=== PATIENT | female | born 1980 | race Caucasian/White ===

== ENCOUNTER 2019-07-15 08:15 | Day surgery (SDC) | payer OTHER, MEDICAID, SELFPAY ==
[2019-07-10 07:21] VITALS: BMI 38.7
[2019-07-15] VITALS (16 sets, daily range): BP systolic 81–128; BP diastolic 44–72; PULSE 68–99; RESP 11–18; TEMP 36.4–37.2; O2SAT 93–100; BMI 38.3
--- NOTE | 2019-07-15 | PATH_ITS ---
[facility] Accession Number: [id number] . 01 Material submitted: . uterus - UTERUS (NOT INCLUDING CERVIX) AND BILATERAL FALLOPIAN TUBES . 02 Diagnosis: Uterus and Bilateral Fallopian Tubes, Supracervical Hysterectomy and Bilateral Salpingectomy (Multiple Uterine Pieces Weigh 71 grams): Disordered proliferative endometrium with a polyp (1.6 cm in greatest dimension); negative for glandular hyperplasia, cytologic atypia or malignancy. Myometrium with no significant histomorphologic abnormality. Uterine serosa with no significant histomorphologic abnormality. Fallopian tube #1 with no significant histomorphologic abnormality; negative for atypia or malignancy. Fallopian tube #2 with multiple benign paratubal cysts (1-7 mm in greatest dimension); negative for atypia or malignancy. [facility] 07/19/2019 0747 Local . 02 Electronically signed: . Coretta Tomas MD, Pathologist NPI- [id number] . 01 Gross description: . Received in formalin, labeled uterus (not including cervix) / bilateral fallopian tubes, is an upper uterine body in multiple pieces (71 g, 8.5 x 6.5 x 4.5 cm in aggregate) and two detached fimbriated fallopian tubes (tube #1: length-4.3 cm, diameter-0.3 cm; tube #2: length-4.6 cm, diameter-0.3 cm). The cervix and ovaries are absent. The specimen cannot be oriented as to anterior and posterior. The endometrium (average thickness-0.1 cm) is hills, smooth, and flat. The myometrium (thickness-2.7 cm) is hills-white and unremarkable. A possible hills rubbery polyp is identified (1.6 x 1.0 x 0.1 cm). The serosa is pale marie-hills, smooth, and shiny. The fallopian tubes have marie-purple, smooth, shiny serosa and hills unremarkable lumens. Fallopian tube #2 contains multiple paratubal cysts (0.1 cm - 0.7 cm) containing clear, colorless fluid. Section Code: (A1-A4) uterine parenchyma, possible polyp is entirely submitted in A3; (A5) fallopian tube #1, route service representative serial sections; (A6) fimbria #1, bivalve, entirely submitted; (A7) fallopian tube #2, route service representative serial sections; (A8) fimbria #2, bivalve, entirely submitted (JM:[id number]) /[facility] 07/17/2019 1219 Local . 02 Pathologist provided ICD-10: N92.0, N94.6, N84.0 . 02 CPT . 167706 Performed at: 01 [facility] [address] [id number] MD Abner Vo MD Phone: [phone] Performed at: 02 [facility] [address] [place], [place] [id number] MD Martita Harding MD Phone: [phone]
--- NOTE | 2019-07-15 09:30 | PM.PREOP ---
Pre-operative Note Interval Note History & Physical reviewed/Exam performed by Physician: Yes Changes to H&P: No
[2019-07-15] MEDS: CEFAZOLIN 2 GM/100 ML FROZ.PIGGY IV (10:12)
[2019-07-15] MEDS: BUPIVACAINE 0.5% W/ EPI (PF) 10 ML VIAL 30 ML INJ (10:52)
[2019-07-15] MEDS: ROPIVACAINE 2% PF 2 MG/ML 20ML AMP 20 ML INJ (10:52)
--- NOTE | 2019-07-15 10:59 | SUR.OPER ---
Lithotomy on padded OR bed. [place] [address] Pad Positioner under torso. Head on pillow, arms padded and tucked at sides. Legs secured in padded yellow fins stirrups.
[2019-07-15] MEDS: LACTATED RINGERS 1,000 ML 42 ML IV (11:51)
--- NOTE | 2019-07-15 12:42 | PM.OP.1 ---
Operative Date/Time/Diagnoses Date of procedure: 07/15/19 Time of procedure: 12:43 Pre-op diagnosis: Menorrhagia and stress urinary incontinence Post-op diagnosis: same Procedure & Clinicians Procedure: Laparoscopic supracervical hysterectomy with bilateral salpingectomy and TVT retropubic suburethral sling Same procedure as scheduled: Yes Indications: Menorrhagia with stress urinary incontinence Surgeon: Xiomara Jacobs Field Health Officer: Miya Mars Click Yes if Unassisted: No Anesthesia Type: General Operative Notes Findings: Normal tubes, ovaries and uterus. Normal external genitalia, vagina with hypermobile urethra, cervix. Urine jets seen from the ureters bilaterally at the end of cystoscopy Closure Type: primary Specimen(s): other (Uterus above the level of the cervix) Applied: catheter and implant(s) (TVT exact suburethral sling) Estimated Blood Loss (mL): 100 Blood products transfused: none Procedure in detail: Patient is brought to the operating room where she underwent general anesthesia and placed in [facility] stirrups. She was prepped and draped in the usual sterile fashion. A check list was reviewed with the staff in the room prior to beginning of the case. Patient had pulsatile stockings in place and functional. 2 g of Ancef were in prior to beginning of the case. A Stanley catheter was placed. A single-tooth tenaculum was placed on the anterior lip of the cervix and the cervix dilated to a #6 Hegar dilator. The uterine manipulator was placed through the cervix into the uterus with the balloon inflated with 3 mL of air. The area of the umbilical incision and the 5 mm right and left lower quadrant incisions were injected with Marcaine. An incision was made with scalpel. The verries needle was placed into the abdomen and confirmed in the appropriate place with withdrawal on a syringe and then free flow of fluid down through the needle. The abdomen was insufflated with CO2. The needle was removed and a 5 mm trocar placed without difficulty. There did not appear to be any damage is placement of the trocar. The right and left lower quadrant incisions were made with the scalpel and the trochars placed without damage to internal structures. The PK forceps were used to cauterize along the mesosalpinx followed by the round ligaments on both sides. Sequential bites were taken down the broad ligaments. The uterine arteries were cauterized. An incision was made above the level bladder pushing the bladder away from the cervix. The DRISS loop was placed around the uterus and the uterus was amputated above the level of the bladder. Bleeding was controlled with the PK forceps. The PK forceps were used to cauterize in the endocervical canal. A supracervical incision was made and an 12 mm port placed. A 12 mm Endo Catch bag was placed in the abdomen. The uterus and tubes were placed in the bag and brought up through the suprapubic port site. The Angel Luis O was placed. The uterus was hand morselized. The abdomen was reinsufflated and adequate hemostasis was noted. The trochars were removed and the CO2 allowed escape from the abdomen. The fascia layer of the suprapubic site was repaired with 0 Polysorb suture. Skin was closed with 4-0 Monocryl suture at the suprapubic site and the other 3 sites. Next the procedure was switched to vaginal. 10 mL of half percent Marcaine with epinephrine were diluted with 20 mL of saline 10 cc was injected around the mid urethra. An incision was made over the mid urethra with a scalpel. The incision was extended laterally. The suprapubic exit sites were marked with a marking pen. The needles attached to the sling were placed from the bottom up and left in place. The catheter was removed and saline placed in the bladder and cystoscopy was performed. A 70?? scope followed by a 0?? scope were used to look at the bladder and the urethra was no damage apparent with placement of the needles. Both ureters were seen to be functional. The graft was brought up loosely under the mid urethra. With sharp pressure against the bladder there was some leakage of urine. The plastic sheath was removed. The graft was cut under the skin of the suprapubic sites. Skin was closed with Steri-Strips. The vaginal incision was closed with 2-0 vicryl suture. Patient went to recovery room in good condition. Counts of instruments and sponges were correct. Complications: none Post-operative Condition: stable Disposition: observation Plan for aftercare: Monitor overnight with bladder trial in a.m.. Home after bladder trial
--- NOTE | 2019-07-15 13:12 | SUR.PHASEI ---
Patient A/O. Denies pain/nausea. Tolerating po. Drsg CDI. Scant amount of drainage to gregorio-pad.
[2019-07-15] MEDS: LACTATED RINGERS 1,000 ML 100 ML IV (14:29)
--- NOTE | 2019-07-15 15:57 | PC.NURSE ---
Addendum entered by Dio Kaplan R.N. 07/15/19 16:00: update: Gregorio pad checked during changed of shift report, and patient had increased bloody drainage on pad. Patient cleansed with water and elizabet pad and gregorio pad replaced. Evening shift RN will continue to monitor. Stanley remains in place and intact. Patient denies pain. Pleasant and talkative. Original Note: Post op at 1330, up to room 218, oriented to room and call light. VSS. Denies pain. Denies n/v. 6 lap sites covered with drsing with scant bloody drainage noted on gregorio pad. Stanley in place and draining clear yellow urine. IV fluids started as ordered, and call light placed within reach.
[2019-07-15] MEDS: OXYCODONE/ACETAMINOPHEN 5/325 TABLET 2 TAB PO ×2 (17:05→21:03)
--- NOTE | 2019-07-15 18:39 | PC.NURSE ---
Addendum entered by Sydnee Campbell R.N. 07/15/19 22:27: Pt had relatively uneventful evening, IVF infusing as per orders. Dsg on lower section changed due to saturation. Med at 2100 for discomfort w/good relief. Stable post op course. Call light w/in reach, bed alarm on for pt safety. Continue w/plan of care. Original Note: Pt resting at intervals. SpO2 98% RA IVF of LR infusing @ 100cc/hr via pump into the RAC w/o incidence. 4 lap site dsg CDI, lower gauze dsg w/drainage. Med @ 1710 for discomfort w/good relief. Stanley cath patent clear, yellow urine. SCD in place, Call light w/in reach, bed alarm on for pt safety.
[2019-07-15] MEDS: DOCUSATE 250 MG CAPSULE PO (21:03)
[2019-07-16] MEDS: OXYCODONE/ACETAMINOPHEN 5/325 TABLET 2 TAB PO ×3 (01:13→09:32)
[2019-07-16 04:40] VITALS: BP 114/57; PULSE 60; RESP 18; TEMP 36.8; O2SAT 98
[2019-07-16 05:57] LABS: Add Manual Diff / Slide Review NO; Basophils Absolute Auto 100 /uL (0-100); Basophils Percent Auto 0.4 % (0-2); Eosinophils Absolute Auto 0 /uL (0-450); Hematocrit 37.3 % (36-46); Hemoglobin 12.8 g/dL (12.0-16.0); Lymphocytes Absolute Auto 1400 /uL (1100-4500); Lymphocytes Percent Auto 9.7 % (25-40); Mean Corpuscular HGB Conc 34.2 % (30-36); Mean Corpuscular Hemoglobin 29.9 PG (26-34); Mean Corpuscular Volume 87.3 fL (80-100); Monocytes Absolute Auto 700 /uL (0-900); Monocytes Percent Auto 5.1 % (3-14); Neutrophils Absolute Auto 12300 /uL (1500-7000); Neutrophils Percent Auto 84.8 % (50-75); Platelet Count 234 X10^3/uL (150-400); Red Blood Cell Count 4.27 X10^6/uL (4.0-5.2); Red Cell Distribution Width 12.7 % (11.6-14.8); White Blood Cell Count 14.5 X10^3/uL (4.5-11.0)
--- NOTE | 2019-07-16 06:55 | PC.NURSE ---
Small amount of drainage on gregorio pad that was changed. Stanley removed at 0535 with no issues. Minimal pain reported and given 2 tabs percocet. Walks well to commode. Bandages to abdomen have scant dried blood
[2019-07-16 08:51] VITALS: BP 124/61; PULSE 79; RESP 16; TEMP 36.1; O2SAT 99
--- NOTE | 2019-07-16 09:12 | PM.DS.1 ---
History of Present Illness History of Present Illness Date Patient Seen: 07/16/19 Time Patient Seen: 09:13 Chief complaint: [id number] LSCH/TVT EXACT SLING *OPB* Narrative: Status post laparoscopic supracervical hysterectomy with TVT exact retropubic suburethral sling Discharge Providers Provider Discharge Date: 07/16/19 Primary care physician: Pino Carbajal MD Consults: 07/15/19 08:50 Consult to Respiratory Therapy Evaluate & Treat Comment: Physician Instructions: Evaluate and treat Discharge provider: Xiomara Jacobs MD Summary Hospital Course Discharge Diagnosis: Menorrhagia with stress urinary incontinence Hospital Course: Patient underwent a laparoscopic supracervical hysterectomy with bilateral salpingectomies and suburethral sling on 07/15/2019. Patient did well postoperatively. She passed her bladder trial. She is urinating and ambulating well. Pain is under control. Status at Discharge Cognitive/behavioral status at discharge: oriented Functional status at discharge: independent ambulation Overall status at discharge: patient is progressing back to baseline Exam Vital Signs (past 8 hours): - 07/16/19 04:40 07/16/19 08:51 Temperature 98.2 F 96.9 F L Pulse Rate 60 79 Respiratory Rate 18 16 Blood Pressure 114/57 L 124/61 Pulse Oximetry 98 99 Oxygen Delivery Method Room Air Oxygen Flow Rate 0 Narrative Exam Narrative: Patient's abdomen is soft, appropriately tender. Her dressings are clean, dry, intact. Extremities without edema and nontender. Objective Labs Result Diagrams: 07/16/19 05:30 Labs: Laboratory Results - last 24 hr 07/16/19 05:30 WBC 14.5 H RBC 4.27 Hgb 12.8 Hct 37.3 MCV 87.3 MCH 29.9 MCHC 34.2 RDW 12.7 Plt Count 234 Neut % (Auto) 84.8 H Lymph % (Auto) 9.7 L [place] % (Auto) 5.1 Eos % (Auto) 0.0 L Baso % (Auto) 0.4 Neut # (Auto) 64987 H Lymph # (Auto) 1400 [place] # (Auto) 700 Eos # (Auto) 0 Baso # (Auto) 100 Discharge Plan Discharge Plan Patient Disposition: Home Discharge Med Rec/Prescriptions Prescriptions: Continued venlafaxine [Effexor XR] 75 MG capsule,extended release 24hr 75 mg PO QDAY Qty: 0 RF: 0 lamotrigine [Lamictal] 25 mg tablet 200 mg PO QDAY Qty: 0 RF: 0 fluconazole [Diflucan] 150 mg tablet 150 mg PO ONCE Qty: 1 RF: 3 oxycodone-acetaminophen [Percocet] 5-325 mg tablet 2 tab PO Q4-6H PRN (Reason: pain) Qty: 30 RF: 0 ibuprofen 200 mg Tablet 800 mg PO Q8H PRN (Reason: pain) RF: 0 Follow up/Referrals: Pino Carbajal MD [Primary Care Provider] - Xiomara Jacobs MD [Physician] - As previously scheduled Discharge Orders: Discharge (Order); Ordered 07/16/19 Ordered By: Xiomara Jacobs Provider Discharge Instructions Activity: Nothing in vagina and do not lift over 20 lb for 6 weeks Skin/Wound/Dressing Care Report to your healthcare provider any signs of infection, such as:: chills, fever, increased pain and unusual redness Dressing: May remove Band-Aids today. May get Steri-Strips wet just pat dry. May remove in 1 week. Visit Report/Discharge Packet Instructions: DI for Hysterectomy, DI for Laparoscopy Discharge Data Primary Care Provider: Pino Carbajal Attending Provider: Xiomara Jacobs Quality VTE Deep Vein Thrombosis/Pulmonary Embolism Present on Admission: No
[2019-07-16] MEDS: DOCUSATE 250 MG CAPSULE PO (09:31)
[2019-07-16] MEDS: lamoTRIgine 100 MG TABLET 200 MG PO (09:32)
[2019-07-16] MEDS: VENLAFAXINE ER 75 MG CAP PO (09:33)
--- NOTE | 2019-07-16 10:11 | PC.NURSE ---
Assess- Patient is awake and states that her pain is 6/10...at rest a 3/10 but when she moves her pain to lower abdomen goes up. Patient has 6 lap incision sites that are cdi. Bandaides are present on the upper three dressings. Taking two percocet for discomfort and just given at 0930. Patient has no blood on her gregorio pad at this time, just a small amount of dried blood around her labia. Up ad sukhjinder. Voided over 400cc in bathroom after fletcher taken out at 0500. She was bladder scanned and her post void residual was 15cc. Called Dr. Jacobs and she states that patient is discharged and able to go home. Patient has all of her pain medication at home and it was given pre-opt.
== END 2019-07-16 11:00 | disposition home or self-care (01) ==
LOC: OR 08:19 → AC 08:19
PROVIDERS: PCP Student in an Organized Health Care Education/Training Program; Referring Provider Specialist; Visit Provider Specialist
PROC: 0UT94ZL Resection of Uterus, Supracervical, Percutaneous Endoscopic Approach (ICD-10-PCS; CPT 58541; principal; 2019-07-15 09:45)
PROC: 0TSD0ZZ Reposition Urethra, Open Approach (ICD-10-PCS; CPT 58541; 2019-07-15 09:45)
DX: N84.0 Polyp of corpus uteri (principal); N39.3 Stress incontinence (female) (male)
CPT/HCPCS: 58541; 57288; 36415; 85025; C1771; J0690; J1100; J1885; J2250; J2405; J2704; J2795; J3010

== ENCOUNTER → 2019-12-02 12:34 | Outpatient (CLI) | payer OTHER, MEDICAID, SELFPAY ==
[2019-07-15 13:56] VITALS: BMI 38.3
--- NOTE | 2019-12-02 12:35 | DI.CT.S_ITS ---
PROCEDURE: CT ABDOMEN PELVIS WO CON INDICATIONS: Abdominal pain TECHNIQUE: Noncontrast 5 mm thick sections acquired from the diaphragms to the symphysis. 5 mm thick coronal and sagittal reformats were then performed. For radiation dose reduction, the following was used: automated exposure control, adjustment of mA and/or kV according to patient size. COMPARISON: [facility], US, PELVIC COMPLETE, 01/01/2016, 16:21. FINDINGS: Image quality: Excellent. Lung bases: Lung bases are clear. Heart size is normal. Urinary system: Both kidneys are normal in size. No kidney stones. No hydronephrosis or perinephric fat stranding. Both ureters appear non-dilated throughout their expected courses. Bladder is contracted; no calcified bladder stones. Other solid organs: Liver is normal in size. Gallbladder is normal. There is a 1.3 cm low density nodule in the pancreatic tail. Pancreas is normal in contours. Spleen is normal in size. No adrenal nodules. Peritoneum and bowel: Appendix is not seen. There are no secondary signs for acute appendicitis. Unenhanced bowel loops demonstrate normal wall thickness and caliber. No free fluid or air. Nodes and vessels: No retroperitoneal or mesenteric adenopathy by size criteria. Aorta and inferior vena cava are normal in caliber. Abdominal wall: No ventral hernias. Pelvis: Uterus is normal. Left ovary is grossly normal. There is a 3.0 x 3.2 cm complex complex cystic mass in the right ovary. No free pelvic fluid. No inguinal hernias or adenopathy. Bones: No suspicious bony lesions. No vertebral body compression fractures. IMPRESSION: 1. No renal stone hydronephrosis. 2. A 1.3 cm low density nodule in the pancreatic tail (series 2 image 24). Recommend CT or MRI using pancreatic protocol. 3. There is a 3.0 x 3.2 cm complex cyst in the right ovary. A pelvic ultrasound is recommended for followup evaluation. Dictated by: Wade Cho M.D. on 12/02/2019 at 15:04 Approved by: Wade Cho M.D. on 12/02/2019 at 18:41
== END ==
PROVIDERS: PCP Student in an Organized Health Care Education/Training Program; Referring Provider Student in an Organized Health Care Education/Training Program; Visit Provider Student in an Organized Health Care Education/Training Program
DX: R10.31 Right lower quadrant pain (principal); K86.9 Disease of pancreas, unspecified; N83.201 Unspecified ovarian cyst, right side; Z90.711 Acquired absence of uterus with remaining cervical stump
CPT/HCPCS: 74176

== ENCOUNTER → 2019-12-17 09:40 | Outpatient (CLI) | payer OTHER, MEDICAID, SELFPAY ==
[2019-07-15 13:56] VITALS: BMI 38.3
--- NOTE | 2019-12-17 09:41 | DI.US.S_ITS ---
PROCEDURE: US PELVIC COMPLETE INDICATIONS: OVARIAN LESION ON CT TECHNIQUE: Real-time scanning was performed of the pelvic organs, with image documentation. Additional endovaginal scanning was necessary due to incomplete visualization of the adnexal and endometrial structures by transabdominal scanning. COMPARISON: [facility], CT, CT ABDOMEN PELVIS WO CON, 12/02/2019, 12:32. [facility], CT, CT ABDOMEN W CON, 12/17/2019, 10:31. FINDINGS: Transabdominal scanning: Limited scanning through the kidneys shows no hydronephrosis. No pathologic free abdominal or pelvic fluid. Endovaginal scanning: Uterus: Prior hysterectomy. Ovaries: Right ovary measures 4.7 x 3.2 x 4.4 cm and the left ovary measures 3.6 x 2.2 x 2.4 cm. Multiple simple cysts involve the right ovary, largest measuring 2.9 x 2.5 x 2.5 cm. IMPRESSION: Multiple simple right ovarian cysts, largest measuring up to 2.9 cm. Dictated by: Peng Dawn [facility] Interpreted: Joan Dewey MD on 12/17/2019 at 11:26 Approved by: Joan Dewey M.D. on 12/17/2019 at 12:20
--- NOTE | 2019-12-17 10:16 | DI.CT.S_ITS ---
PROCEDURE: CT ABDOMEN W CON INDICATIONS: Re-eval pancreatic nodule seen on noncontrast TECHNIQUE: After the administration of intravenous contrast, 5 mm thick images acquired from the diaphragm to the iliac crests in the pancreatic parenchymal phase and delayed venous phase. 5 mm thick coronal and sagittal reformats were acquired. For radiation dose reduction, the following was used: automated exposure control, adjustment of mA and/or kV according to patient size. COMPARISON: , CT, CT ABDOMEN PELVIS [facility], 12/02/2019, 12:32. FINDINGS: Image quality: Excellent. Lung bases: Lung bases are clear. Heart size is normal. Pancreas: The area in question seen on the previous noncontrast CT in the region of the pancreatic tail has an enhancement pattern which is identical to the remaining pancreatic parenchyma. No suspicious low-density or hypervascular pancreatic mass. Findings are consistent with normal variant bulbous appearance of the pancreatic tail. Solid organs: Liver is normal in size and enhancement. Gallbladder is unremarkable. Biliary system is non dilated. Spleen is normal in size and enhancement. Incidental sub cm left adrenal nodule. Kidneys are unremarkable. The enhance normally without focal masses or hydronephrosis. Peritoneum and bowel: Unenhanced bowel loops are normal in caliber and wall thickness. No free fluid or air. Nodes and vessels: No retroperitoneal or mesenteric adenopathy by size criteria. Aorta and inferior vena cava are normal in caliber. Bones: No suspicious bony lesions. No vertebral body compression fractures. Miscellaneous: No ventral hernias. IMPRESSION: No suspicious pancreatic tail lesion. Unremarkable multiphase CT abdomen. Dictated by: Manuelito Fierro M.D. on 12/17/2019 at 13:10 Approved by: Manuelito Fierro M.D. on 12/17/2019 at 13:14
== END ==
PROVIDERS: PCP Student in an Organized Health Care Education/Training Program; Referring Provider Student in an Organized Health Care Education/Training Program; Visit Provider Student in an Organized Health Care Education/Training Program
DX: K86.89 Other specified diseases of pancreas (principal); N94.89 Other specified conditions associated with female genital organs and menstrual cycle; N83.291 Other ovarian cyst, right side; Z90.710 Acquired absence of both cervix and uterus
CPT/HCPCS: 74160; 76830; 76856; Q9967

== ENCOUNTER → 2023-04-18 13:55 | Outpatient (CLI) | payer OTHER, MEDICAID, SELFPAY ==
[2019-07-15 13:56] VITALS: BMI 38.3
--- NOTE | 2023-04-18 13:56 | DI.RAD.S_ITS ---
PROCEDURE: XR HIP W PEL IF DONE RT 2V INDICATIONS: rt hip pain x 3 yrs TECHNIQUE: AP pelvis with lateral view(s) of the right hip(s). COMPARISON: None. FINDINGS: Bones: No fractures or dislocations. Pelvic ring appears intact. Minimal degenerative changes at the pubic symphysis. No suspicious bony lesions. Soft tissues: The visualized bowel gas pattern is normal. No suspicious soft tissue calcifications. IMPRESSION: No significant joint space narrowing or osteophytic lipping at the right hip. Dictated by: Jose Juan Timmons M.D. on 04/18/2023 at 16:27 Approved by: Jose Juan Timmons M.D. on 04/18/2023 at 16:29
== END ==
PROVIDERS: PCP Family Medicine; Referring Provider Family Medicine; Visit Provider Family Medicine
DX: M25.551 Pain in right hip (principal); G89.29 Other chronic pain
CPT/HCPCS: 73502

== ENCOUNTER 2023-11-04 01:40 | Emergency (ER) | payer OTHER, MEDICAID, SELFPAY ==
[2019-07-15 13:56] VITALS: BMI 38.3
[2023-11-04] MEDS: SODIUM CHLORIDE 0.9% 1,000 ML 1000 ML IV (01:55)
[2023-11-04] MEDS: KETOROLAC 30 MG/ML VIAL 15 MG IV (01:55)
--- NOTE | 2023-11-04 02:15 | DI.CT.S_ITS ---
PROCEDURE: CT KIDNEY URETER BLADDER (KUB) INDICATIONS: possible stone, hx of hysterectomy TECHNIQUE: Axial sections were acquired from the lung bases to the pubic symphysis. Coronal and sagittal reformats were performed. For radiation dose reduction, the following was used: automated exposure control, adjustment of mA and/or kV according to patient size. COMPARISON: [facility], CT, CT ABDOMEN PELVIS WO CON, 12/02/2019, 12:32. [facility], CT, CT ABDOMEN W CON, 12/17/2019, 10:31. [facility], US, US PELVIC COMPLETE, 11/04/2023, 3:47. FINDINGS: Image quality: Diagnostic. Lower Chest: No significant findings. URINARY: Right Kidney: No stones or hydronephrosis. The right kidney is mildly low lying. Right Ureter: No hydroureter. Left Kidney: No stones or hydronephrosis. Left Ureter: No hydroureter. Bladder: Normal wall thickness. No stones. ABDOMEN: Liver: No contour-deforming solid mass. Gallbladder: No radiopaque gallstones or wall thickening. Biliary ducts: No biliary dilation. Pancreas: No ductal dilation. Spleen: Size is within normal limits. Adrenal Glands: No adrenal nodules. Stomach and Bowel: Normal colonic caliber, without significant wall thickening. Peritoneum: No abnormal intraperitoneal fluid. No free air. Ventral Wall: No hernia. Abdominal Nodes: No enlarged retroperitoneal or mesenteric lymph nodes. Vessels: Aorta and inferior vena cava are normal in size. PELVIS: Pelvic Organs: This patient is status post hysterectomy. Within the central pelvis, cystic lesions are seen, which measure 7.5 cm, when measured together. Pelvic Nodes: Unremarkable. Miscellaneous: No inguinal hernias are seen. Bones: Unremarkable. Focal lower lumbar spine degenerative change can be seen. IMPRESSION: No obstructing stones or hydronephrosis. Status post hysterectomy, with a multi cystic mass within the central pelvis. Note: No significant discrepancy from the preliminary report. Dictated by: Nhan Cross M.D. on 11/04/2023 at 8:11 Approved by: Nhan Cross M.D. on 11/04/2023 at 8:16
--- NOTE | 2023-11-04 03:30 | DI.US.S_ITS ---
PROCEDURE: US PELVIC COMPLETE INDICATIONS: Mass seen on CT. Right-sided pelvic pain. TECHNIQUE: Real-time scanning was performed of the pelvic organs, with image documentation. Additional endovaginal scanning was necessary due to incomplete visualization of the adnexal and endometrial structures by transabdominal scanning. COMPARISON: [facility], , PELVIC COMPLETE, 01/01/2016, 16:21. [facility], CT, CT KIDNEY URETER BLADDER (KUB), 11/04/2023, 2:16. [facility], , US PELVIC COMPLETE, 12/17/2019, 9:55. FINDINGS: Uterus: Hysterectomy. Ovaries: The right ovary is abnormally enlarged, measuring 9.6 x 8.1 x 6.5 cm, with a volume of 264 cc. Very little normal ovarian tissue can be seen, with multiple cysts seen consuming the right ovary. This is seen within the central pelvis. The right ovarian waveforms demonstrate increased arterial resistance. Venous flow is confirmed. The left ovary measures 3 x 2.7 x 2.5 cm, with a volume of 10.6 cc. Normal appearing arterial waveforms are confirmed to the left ovary. Other: No pathologic free abdominal or pelvic fluid. IMPRESSION: A multi-cystic mass is seen, which is attributed to the right ovary seen within the central pelvis. Please consider ovarian neoplasm. Please consider gynecology consultation. If it would be clinically appropriate, a followup pelvic ultrasound could be considered in 6 weeks to assure resolution/ improvement. Negative for ovarian torsion. Status post hysterectomy. Note: No significant discrepancy from the preliminary report. We strive to produce accurate, complete, and clear reports of imaging services. To assist us in improving patient care, this report was composed using standard report templates and voice recognition software. Therefore, it may contain abnormal punctuation, insertions and/or omissions. Occasional wrong-word or sound-alike substitutions may occur. Though we review the report and make efforts to correct it, we do recommend that the report be read carefully in proper context to recognize any text inaccuracies. Dictated by: Nhan Cross M.D. on 11/04/2023 at 8:17 Approved by: Nhan Cross M.D. on 11/04/2023 at 8:20
--- NOTE | 2023-11-04 13:07 | PC.NURSE ---
EM[facility] downtime began 11/03/231999 and continued throughout the patient's stay. Refer to paper documentation.
[2023-11-04 19:55] LABS: Alanine Aminotransferase 38 IU/L (<35); Albumin 4.5 g/dL (3.5-5.0); Albumin Globulin Ratio 1.4 (1.0-2.8); Alkaline Phosphatase 56 U/L (38-126); Aspartate Aminotransferase 28 IU/L (14-36); BUN Creatinine Ratio 14.8 (6-22); Bilirubin Total 0.3 mg/dL (0.2-1.3); Blood Urea Nitrogen 12 mg/dL (7-17); Calcium 9.6 mg/dL (8.4-10.2); Carbon Dioxide 29 mmol/L (22-32); Chloride 105 mmol/L (98-107); Estimated Glomerular Filt Rate > 60 mL/min (>60); Globulin 3.3 g/dL (1.7-4.1); Glucose 102 mg/dL (70-100); HEMOLYSIS < 15 (0-50); Lipase 95 U/L (23-300); Sodium 138 mmol/L (137-145); Total Protein 7.8 g/dL (6.3-8.2)
[2023-11-04 19:56] LABS: Lactate (Lactic Acid) 1.9 mmol/L (0.7-2.1)
[2023-11-04 21:18] LABS: Add Manual Diff / Slide Review NO; Basophils Absolute Auto 200 /uL (0-100); Basophils Percent Auto 2.3 % (0-2); Eosinophils Absolute Auto 200 /uL (0-450); Eosinophils Percent Auto 1.9 % (2-4); Hematocrit 39.3 % (36-46); Hemoglobin 13.2 g/dL (12.0-16.0); Lymphocytes Absolute Auto 1900 /uL (1100-4500); Lymphocytes Percent Auto 18.4 % (25-40); Mean Corpuscular HGB Conc 33.6 % (30-36); Mean Corpuscular Hemoglobin 29.2 PG (26-34); Mean Corpuscular Volume 86.9 fL (80-100); Monocytes Absolute Auto 600 /uL (0-900); Monocytes Percent Auto 5.8 % (3-14); Neutrophils Absolute Auto 7400 /uL (1500-7000); Neutrophils Percent Auto 71.6 % (50-75); Platelet Count 276 X10^3/uL (150-400); Red Blood Cell Count 4.52 X10^6/uL (4.0-5.2); Red Cell Distribution Width 13.1 % (11.6-14.8); White Blood Cell Count 10.4 X10^3/uL (4.5-11.0)
== END 2023-11-04 05:20 | disposition home or self-care (01) ==
PROVIDERS: Emergency Provider Emergency Medicine; PCP Family Medicine
DX: N83.291 Other ovarian cyst, right side (principal)
CPT/HCPCS: 74176; 76856; 80053; 83605; 83690; 85025; 93975; 96374; 99283; 99284; J1885

== ENCOUNTER → 2023-11-09 10:34 | Outpatient (CLI) | payer OTHER, MEDICAID, SELFPAY ==
[2019-07-15 13:56] VITALS: BMI 38.3
[2023-11-09 12:40] LABS: Cancer Antigen 125 173 U/mL (0-35)
[2023-11-11 13:10] LABS: Human Epididymis Prot 4 44.2 pmol/L (0.0-63.6)
== END ==
PROVIDERS: PCP Family Medicine; Referring Provider Student in an Organized Health Care Education/Training Program; Visit Provider Student in an Organized Health Care Education/Training Program
DX: N83.299 Other ovarian cyst, unspecified side (principal); R10.31 Right lower quadrant pain; N94.89 Other specified conditions associated with female genital organs and menstrual cycle; K86.89 Other specified diseases of pancreas
CPT/HCPCS: 36415; 86304; 86305

== ENCOUNTER 2023-11-17 09:24 | Day surgery (SDC) | payer OTHER, MEDICAID, SELFPAY ==
[2019-07-15 13:56] VITALS: BMI 38.3
[2023-11-15 13:36] VITALS: BMI 44.6
--- NOTE | 2023-11-17 | PATH_ITS ---
[facility] Accession Number: [id number] No. of containers..01 Tissue . 01 Material submitted: . ovary - RIGHT OVARY, POST INFARCTION . 01 Diagnosis: A. RIGHT OVARY, POST INFARCTION, OOPHORECTOMY: Diffusely hemorrhagic and necrotic ovarian parenchyma with evidence of prior hemorrhage, consistent with infarction. Focal cystic change is seen. No evidence of borderline tumor or malignancy. [facility] 11/22/2023 1432 Local . 01 Electronically signed: . Savana Lee MD, Pathologist NPI- [id number] . 01 Gross description: . Received in formalin, labeled with two patient identifiers and designated right ovary, post infarction, and consists of a 16.5 x 7.0 x 2.5 cm, 121 g aggregate of hills, dusky brown, and hemorrhagic clotted blood admixed with fibromembranous tissue. There is a 3.0 x 1.5 x 1.1 cm residual ovary remnant that has a smooth, glistening, hemorrhagic capsule and a white, fibrotic ovarian parenchyma with multiple hemorrhagic cystic spaces ranging from 0.2 cm up to 0.8 cm in greatest dimension. The remaining aggregate of fibromembranous tissue is diffusely edematous and hemorrhagic and ranges in thickness from 0.1 cm up to 0.5 cm. Scudding Inspector sections are submitted in: Cassettes A1 and A2: Residual ovary. Cassettes A3 and A4: Edematous fibromembranous cystic tissue. ([id number]) /[facility] 11/18/2023 1409 Local . 01 Microscopic: . A limited panel of immunostains is performed on block A1 in order to evaluate an area of proliferating apparent histiocytes, with appropriately staining external controls. CD68 highlights the cells of interest and NEIL is negative, in support of the diagnosis. . * This test was developed and its performance characteristics determined by [facility]. It has not been cleared or approved by the U.S. Food and Drug Administration. The FDA has determined that such clearance or approval is not necessary. This test is used for clinical purposes. It should not be regarded as investigational or for research. . 01 Pathologist provided ICD-10: N83.201 . 01 CPT . 961280, L92393, S03895 Specimen Comment: A courtesy copy of this report has been sent to [phone] Performed at: [address] [id number] MD Abner Vo MD Phone: [phone]
[2023-11-17] MEDS: LACTATED RINGERS 1,000 ML 100 ML IV ×2 (10:08→12:21)
[2023-11-17 10:10] VITALS: BP 106/61; PULSE 72; RESP 18; TEMP 36.4; O2SAT 98; BMI 44.6
--- NOTE | 2023-11-17 11:20 | PM.PREOP ---
Pre-operative Note COVID-19 COVID-19 status: Not tested Interval Note History & Physical reviewed/Exam performed by Physician: Yes Changes to H&P: No
--- NOTE | 2023-11-17 11:48 | SUR.OPER ---
Lithotomy on padded OR bed, head on pillow, arms padded and tucked. Legs secured in padded yellow fins stirrups.
[2023-11-17] MEDS: BUPIVACAINE 0.5% (PF) 30 ML, EPINEPHrine 0.15 MG INJ (12:21)
[2023-11-17 13:00] VITALS: BP 112/60; PULSE 82; RESP 16; TEMP 36.7; O2SAT 95
[2023-11-17] MEDS: ACETAMINOPHEN IV 1,000 MG/100 ML VIAL 400 MG IV (13:04)
[2023-11-17 13:05] VITALS: PULSE 79; RESP 12; O2SAT 94
[2023-11-17] MEDS: OXYCODONE IR 5 MG TABLET PO (13:05)
[2023-11-17 13:10] VITALS: BP 129/81; PULSE 74; RESP 17; TEMP 36.3; O2SAT 95
--- NOTE | 2023-11-17 13:10 | P.OP_ITS ---
Operative Date/Time/Diagnoses Date of procedure: 11/17/23 Time of procedure: 11:30 Pre-op diagnosis: Right ovarian mass/cyst Pelvic pain Post-op diagnosis: other (FELY; Infarcted right ovary, abdomino-pelvic adhesions) Procedure & Clinicians Procedure: Procedures Operation Date: 11/17/23 11:15 Actual Procedure Side Surgeon p Laparoscopic right Oophorectomy with lysis of adhesions Right Vadim Guzman MD Indications: 43-year-old female with history of supracervical hysterectomy, here for ER follow-up. She reports having 2 weeks of worsening right lower quadrant pain, which became so severe that she went to the ER. Since her ER visit, the right lower quadrant pain has dulled slightly, however she continues to feel pressure and bloating, particularly with movement. She reports having right lower quadrant pain off and on over the last several years, and was told in the past that she has ovarian cysts. Recent pelvic ultrasound performed on 11/04/2023 shows: FINDINGS: Uterus: Hysterectomy. Ovaries: The right ovary is abnormally enlarged, measuring 9.6 x 8.1 x 6.5 cm, with a volume of 264 cc. Very little normal ovarian tissue can be seen, with multiple cysts seen consuming the right ovary. This is seen within the central pelvis. The right ovarian waveforms demonstrate increased arterial resistance. Venous flow is confirmed. The left ovary measures 3 x 2.7 x 2.5 cm, with a volume of 10.6 cc. Normal appearing arterial waveforms are confirmed to the left ovary. Other: No pathologic free abdominal or pelvic fluid. IMPRESSION: A multi-cystic mass is seen, which is attributed to the right ovary seen within the central pelvis. Please consider ovarian neoplasm. Please consider gynecology consultation. If it would be clinically appropriate, a followup pelvic ultrasound could be considered in 6 weeks to assure resolution/ improvement. After discussion of all options with Dr. Livia Bai, patient has decided to proceed with laparoscopic right salpingo oophorectomy, left salpingectomy and possible left oophorectomy if the ovary is abnormal in any way. Patient understands that if both ovaries are removed, hormone replacement therapy would be indicated with its attendant benefits and potential risks. She presents to [facility] for her scheduled surgery. Surgeon: Vadim Guzman Avionics Supervisor: Amy Polo Anesthesia Type: General Operative Notes Findings: The uterus is surgically absent. The right ovary is grossly enlarged consistent with previously documented ultrasound dimensions. The ovarian capsule is dusky and fragile. Within the enlarged ovary is old hemorrhage. At the right ovarian hilum there is clear evidence of torsion of the distal infundibulopelvic liga ment at its junction with the hilum. There are adhesions involving virtually every surface of the ovary. The omentum is adherent to the anterior superior aspect of the ovary, the anterior inferior aspect of the ovary is adherent to the anterior cul-de-sac and those adhesions extend down into the posterior cul-de-sac in the midline. They involve the rectosigmoid and to some degree a few loops of small bowel. It appears both fallopian tubes were removed at the time of the patient's hysterectomy. The left ovary is normal in both size and appearance and therefore left in-situ you. The appendix is not involved. The remainder of the abdomen and pelvis are unremarkable laparoscopic visualization. Closure Type: primary Specimen(s): other (Right ovary) Estimated blood loss (mL): 25 Blood products transfused: none Procedure in detail: With general anesthesia in the modified dorsal lithotomy position, the perineum, vagina, and abdomen were prepped and draped in the usual manner for laparoscopy. A pre-surgical safety time-out was then taken in accordance with [facility] Main OR protocols. A 2.5 cm vertical incision was made in the skin of the inferior umbilicus after infiltration with 0.5% Marcaine with epinephrine. The dissection was carried down to the deep fascia which was grasped with Otto clamps and a transverse incision of the fascia was made with Metzenbaum scissors. Stay sutures of 0 Vicryl were placed at both angles and sharp dissection was used to move through the preperitoneal fat into the peritoneal cavity. A 12 mm Cortés cannula was then placed into the abdominal cavity and secured in place with the stay sutures. The abdomen was insufflated and correct placement of the laparoscopic port confirmed by direct visualization. A 2nd and 3rd 5 mm port was then placed in the left and right mid quadrants after infiltration of the skin and subcutaneous tissues with 0.5% Marcaine with epinephrine. Using a 3 puncture technique the pelvis was visualized and the patient placed in steep Trendelenburg. Sharp and blunt dissection were used to free the infarcted right ovary from the adhesions with careful attention to anatomic planes and potential sources of bleeding maintained at all times. The ovary was eventually freed of all surrounding adhesions and the hilum coagulated and divided with the power Seal bipolar device. Once the right ovary was freed of all adhesions and vascular supply, it was removed from the abdominal cavity using a large Endo-Catch bag introduced through the umbilical port. Specimen was submitted in formalin for pathologic evaluation. The pelvis and abdomen were thoroughly irrigated and inspected for any additional abnormalities were points of bleeding. The pelvis and abdomen were hemostatic and no other abnormalities were seen. The peritoneum was then vented and laparoscopic ports removed. The umbilical port fascia was closed with 3 0 Vicryl interrupted sutures. The skin edges were then brought together with 4-0 Monocryl inverted interrupted. The incisions were then reinforced with skin glue and appropriate dressings applied. The patient was then awakened from anesthesia and transferred to the PACU for a period of observation and recovery after having tolerated the procedure well. Complications: none Post-operative Condition: stable Disposition: PACU Plan for aftercare: Routine postoperative care with follow-up planned for 2 weeks postop
[2023-11-17 13:15] VITALS: BP 122/76; PULSE 80; RESP 15; O2SAT 94
[2023-11-17 13:20] VITALS: BP 128/72; PULSE 72; RESP 15; TEMP 36.3; O2SAT 96
== END 2023-11-17 13:47 | disposition home or self-care (01) ==
PROVIDERS: PCP Family Medicine; Referring Provider Obstetrics & Gynecology; Visit Provider Obstetrics & Gynecology
PROC: (CPT 58661; principal; 2023-11-17 11:15)
DX: N83.8 Other noninflammatory disorders of ovary, fallopian tube and broad ligament (principal); N73.6 Female pelvic peritoneal adhesions (postinfective)
CPT/HCPCS: 58661; J0136; J0171; J1100; J1170; J1885; J2405; J2704